=== PATIENT | female | born 1970 | race Caucasian/White ===

== ENCOUNTER 2024-07-19 12:49 | Inpatient (IN) | payer OTHER, MEDICAID ==
[~2024-07-19] VITALS: Ht 167.6 cm; Wt 95.0 kg
--- NOTE | 2024-07-19 13:29 | ECG ---
[facility] Test Date: 2024-07-19 Test Time: 12:56:25 Pat Name: JACKSON NGUYEN Department: ER Room: Gender: F Oil Mixer: CHELSEA : 1970 Requested By: AMIRA VALLEJO Order Number: [id number] Reading MD: Measurements Intervals [place] Rate: 60 P: 32 WI: 173 QRS: -16 QRSD: 82 T: 89 QT: 594 QTc: 594 Interpretive Statements Sinus rhythm Borderline left axis deviation Consider anterior infarct Prolonged QT interval Please click the below link to view image of tracing.
--- NOTE | 2024-07-19 13:50 | ED.PDOC ---
HPI Comments HPI: Poor Historian. 53 Y F YIFAN presents to the ED, with CC of chest pain. Per EMS, patient started experiencing chest pain x1 hour that radiates to her neck and head. Patient, relays that she currently just finished chemotherapy for breast cancer in her right breast and is supposed to start radiation next week. Patient was given 324mg of Aspirin and 0.4 on Nitro in route to the ED; patient relays that symptoms improved after medications. Patient denies fever, chills, body aches, or N/V/D. VITALS: T:98.3 HR:65 RR:16 O2:99 BP:148/81 SOCIAL HX: DENIES TOBACCO USAGE, ETOH CONSUMPTION, OR ILLICIT DRUG USE SHX: GALLBLADDER PMHX: BREAST CANCER, APPENDICITIS ALLERGIES: NKA REVIEW OF SYSTEMS: CONSTITUTIONAL: Denies acute: fever, diaphoresis, chills, generalized weakness. HEAD: Denies acute: headache, photophobia Eyes: Denies acute: Double vision, vision loss, eye pain, eye discharge. EARS: Denies acute: tinnitus, hearing loss, ear discharge, ear pain, THROAT: Denies acute: sore throat, swelling, difficulty swallowing , pain with swallowing, change in voice. NECK: Denies acute: neck swelling, stiff neck. HEART: Denies acute : palpitations, LUNGS: Denies acute: wheezing, cough, hemoptysis ABDOMEN: Denies acute: abdominal pain, Nausea, Vomiting, diarrhea, melena , hematemesis, hematochezia SKIN: Denies acute: rash, redness, lesions, itchiness. EXTREMITIES: Denies acute: calf pain, numbness, tingling, weakness, denies pain in extremity. Denies acute: Low back pain. Neuro: Denies acute: focal neurological deficit, motor or sensory focal neurological deficit, tremors, seizure like activity, confusion, dizziness, change in mental status, loss of bowel or bladder function, cauda equina like symptoms. : Denies acute: dysuria, hematuria, flank pain, increase in urinary frequency. PSYCH: Denies acute: hallucination, suicidal ideation, homicidal ideation. FEMALE: Denies acute: abnormal vaginal bleeding, foul odor, unusual discharge. PHYSICAL EXAM: General: no acute distress, awake and alert. Head: normocephalic, atraumatic. Neck: supple, trachea is midline, no swelling. Throat: Normal phonation. Eyes:, no erythema, no purulent discharge, no proptosis, no icterus. Heart: regular rate, regular rhythm, no significant murmur appreciated. Lungs: no apparent respiratory distress, Able to speak in full sentences. No wheezing, no rhonchi, no crackles. No stridors Clear to auscultation bilaterally. Abdomen: non tender to palpation, non distended, soft, no guarding, no rebound, + bowel sounds. Neuro: Awake, Alert, oriented to name, self, situation, follows commands GCS=15. Speech is normal. Skin: no petechia, no purpura, no cyanosis, non-pale, not jaundice. Lower extremities: --no - Pitting edema no deformity, no focal swelling, no calf TTP. Makes eye contact. moves all four extremities. Face: no apparent facial droop. Ambulating in the ED independently. Chief Complaint: Chest Pain Time Seen by MD: 13:00 Primary Care Provider: ELIZABETH Reviewed Notes: Nurses Notes, High School Coach Notes, Medications, Allergies Allergies: Coded Allergies: NO KNOWN ALLERGIES (Unverified , 05/16/13) Information Source: Patient, Emergency Med Personnel Mode of Arrival: EMS Severity: Mild Timing: Hours Duration: Since onset Prehospital treatment: Other (324 ASPRIN, 0.4 NITRO) Location: Substernal Radiation: Neck Cardiac Risk Factors: None PE Risk Factors: None History of: None Associated Signs and Symptoms: None Was a procedure done? Was a procedure done?: No X-Ray, Labs, Meds, VS Vital Signs Date Time Temp Pulse Resp B/P (MAP) Pulse Ox O2 Delivery O2 Flow Rate FiO2 07/19/24 18:53 65 07/19/24 17:52 60 16 97 Room Air* 0 21 07/19/24 15:52 60 07/19/24 15:32 65 18 98 Room Air 07/19/24 15:32 98.2 65 18 144/91 (108) 95 98.2 07/19/24 14:14 60 07/19/24 12:56 60 07/19/24 12:49 98.3 65 16 148/81 (103) 99 Lab Test 07/19/24 17:20 07/19/24 15:29 07/19/24 15:26 07/19/24 14:36 Range/Units Troponin I High Sensitivity < 3 L < 3 L < 3 L </=34 ng/L Urine Color Yellow Yellow Urine Clarity Turbid H Clear Urine pH 6.5 5.0-9.0 Urine Specific [place] 1.020 1.001-1.035 Urine Protein Trace H Negative Urine Ketones Trace Negative Urine Blood Negative Negative /uL Urine Nitrite Negative Negative Urine Bilirubin Negative Negative Urine Urobilinogen Normal Negative mg/dL Urine Leukocyte Esterase 2+ Negative /uL Urine RBC 3 0 - 4 /hpf Urine WBC 18 0 - 5 /hpf Urine Squamous Epithelial Cells Mod <5 /hpf Urine Bacteria Few H None Seen /hpf Urine Hyaline Casts Few 0 - 2 /lpf Urine Mucus Few None Seen Urine Yeast (Budding) Occasional None Seen /hpf Urine Glucose Normal Normal mg/dL White Blood Count 4.5 4.4-10.8 10^3/uL Red Blood Count 4.60 4.0-5.20 10^6/uL Hemoglobin 14.6 12.2-16.2 g/dL Hematocrit 42.7 36.0-46.0 % Mean Corpuscular Volume 92.9 80.0-100.0 fL Mean Corpuscular Hemoglobin 31.8 28.0-32.0 pg Mean Corpuscular Hemoglobin Concent 34.3 32.0-36.0 g/dL Red Cell Distribution Width 12.5 11.8-14.3 % Platelet Count 261 140-450 10^3/uL Mean Platelet Volume 6.8 L 6.9-10.8 fL Neutrophils (%) (Auto) 49.8 37.0-80.0 % Lymphocytes (%) (Auto) 41.4 10.0-50.0 % Monocytes (%) (Auto) 6.5 0.0-12.0 % Eosinophils (%) (Auto) 1.3 0.0-7.0 % Basophils (%) (Auto) 1.0 0.0-2.0 % Neutrophils # (Auto) 2.3 1.6-8.6 10 ^3/uL Lymphocytes # (Auto) 1.9 0.4-5.4 10 ^3/uL Monocytes # (Auto) 0.3 0-1.3 10 ^3/uL Eosinophils # (Auto) 0.1 0-0.8 10 ^3/uL Basophils # (Auto) 0 0-0.2 10 ^3/uL Nucleated Red Blood Cells 0.2 % D-Dimer, Quantitative 0.74 H 0.0-0.49 mg/L FEU Sodium Level 141 136-145 mmol/L Potassium Level 3.8 3.5-5.1 mmol/L Chloride Level 109 H 98-107 mmol/L Carbon Dioxide Level 24 20-31 mmol/L Anion Gap 8 5-15 Blood Urea Nitrogen 12 9-23 mg/dL Creatinine 0.80 0.550-1.02 mg/dL Glomerular Filtration Rate Calc 87 >90 mL/min BUN/Creatinine Ratio 15.0 10.0-20.0 Serum Glucose 99 74-106 mg/dL Lactic Acid Level 1.3 0.4-2.0 mmol/L Calcium Level 10.6 H 8.7-10.4 mg/dL Total Bilirubin 1.0 0.2-1.0 mg/dL Aspartate Amino Transferase (AST) 32 13-40 U/L Alanine Aminotransferase (ALT) 49 H 7-40 U/L Alkaline Phosphatase 103 46-116 U/L B-Type Natriuretic Peptide 12.71 0-100 pg/mL Total Protein 7.0 5.7-8.2 g/dL Albumin 4.6 3.2-4.8 g/dL Current Medications Medications (Trade) Dose Ordered Sig/Beverly Route Start Time Stop Time Status Last Admin Ceftriaxone Sodium 50 ml @ 100 mls/hr ONCE ONCE IV 07/19/24 17:00 07/19/24 17:29 DC 07/19/24 17:49 Time of 1ST Reevaluation: 13:30 Reevaluation 1ST: Unchanged Time of 2ND Reevaluation: 16:53 (The case was discussed with the [facility] team (HPI, physical exam, labs and diagnostic tests that were available at the time of disposition, ED course, treatment plan) on the phone. CTA angiogram still pending. Dr. Snady authorization [id number]. Assuming CT scan is normal, they will transfer the patient to their facility for further evaluation and treatment.) Time of 3RD Reevaluation: 19:17 ([facility] called back again at this time and said that they can not find a bed for the patient. They authorized us to admit the patient here in our facility.) Patient Education/Counseling: Diagnosis, Treatment Family Education/Counseling: Other Comments 53 Y F YIFAN presents to the ED, with CC of chest pain. Patient was found with the above mentioned diagnosis. the following medications were ordered: NITROGLYCERIN SUBLINGUAL the following tests were ordered: EKGX2, LABS, UA, CXR Patient ED course and VS have been stabilized. Patient has been reassessed in the ED and remained in a stable condition. Pertinent incidental findings were discussed with the patient and/or family. Patient/family voices understanding and is agreeable with plan. Patient has been observed in the ED adequate length of time to insure improvement/stability. Escalation of care considered: Consideration of escalation to observation or admission Patient was ADMITTED to the medicine team for further evaluation and treatment of their presentation. Patient was discharged. All the reports of any imaging studies that were ordered by myself were reviewed by myself. Departure 1 Departure Time of Disposition: 14:18 Impression: Primary Impression: Chest pain Additional Impression: Pulmonary nodule Disposition: ADMITTED INPATIENT Admit to: Tele Condition: Guarded Discharged With: Self Critical Care Note Critical Care Time?: No Stability Stability form required: No Heart Score Heart Score: Heart Score Response (Comments) Value History N/A 0 EKG N/A 0 Age N/A 0 Risk Factors N/A 0 Troponin N/A 0 Total 0 I personally scribed for AMIRA VALLEJO DO ([email or web address]) on 07/19/24 at 13:50. Electronically submitted by Montserrat Holguin ([email or web address]). I personally scribed for AMIRA VALLEJO DO ([email or web address]) on 07/19/24 at 15:46. Electronically submitted by Montserrat Holguin ([email or web address]). AMIRA VALLEJO DO Jul 19, 2024 13:50
--- NOTE | 2024-07-19 13:51 | DVH ---
CHEST RADIOGRAPH Indication: cp Technique: Single frontal view of the chest was obtained COMPARISON: None FINDINGS: Lines and Tubes: None Lungs: Clear Pleura: No effusion. No pneumothorax. Cardiomediastinal contours: Unremarkable Bones: Unremarkable IMPRESSION: 1. No acute disease.
[2024-07-19 14:51] LABS: Basophils # (auto) 0 10 ^3/uL (0-0.2); Eosinophils # (auto) 0.1 10 ^3/uL (0-0.8); Eosinophils % (auto) 1.3 % (0.0-7.0); Hematocrit 42.7 % (36.0-46.0); Hemoglobin 14.6 g/dL (12.2-16.2); Lymphocytes # (auto) 1.9 10 ^3/uL (0.4-5.4); Lymphocytes % (auto) 41.4 % (10.0-50.0); Mean Corpuscular Hemoglobin 31.8 pg (28.0-32.0); Mean Corpuscular Hgb Conc. 34.3 g/dL (32.0-36.0); Mean Corpuscular Volume 92.9 fL (80.0-100.0); Monocytes # (auto) 0.3 10 ^3/uL (0-1.3); Monocytes % (auto) 6.5 % (0.0-12.0); Neutrophils # (auto) 2.3 10 ^3/uL (1.6-8.6); Neutrophils % (auto) 49.8 % (37.0-80.0); Nucleated Red Blood Cells % 0.2 %; Platelet Count (auto) 261 10^3/uL (140-450); Red Cell Distribution Width 12.5 % (11.8-14.3); White Blood Cell 4.5 10^3/uL (4.4-10.8)
[2024-07-19 15:12] LABS: Albumin 4.6 g/dL (3.2-4.8); Alkaline Phosphatase 103 U/L (46-116); Anion Gap 8 (5-15); Aspartate Aminotransferase 32 U/L (13-40); Blood Urea Nitrogen 12 mg/dL (9-23); Carbon Dioxide 24 mmol/L (20-31); Glucose 99 mg/dL (74-106); Potassium 3.8 mmol/L (3.5-5.1); Sodium 141 mmol/L (136-145)
[2024-07-19 15:30] LABS: Alanine Aminotransferase 49 U/L (7-40); Calcium 10.6 mg/dL (8.7-10.4); Chloride 109 mmol/L (98-107)
[2024-07-19] MEDS: NITROGLYCERIN 0.4 MG SL TAB SL ONE (15:34)
[2024-07-19 15:51] LABS: Urine Bacteria FEW /hpf (None Seen); Urine Blood Negative /uL (Negative); Urine Budding Yeast OCCASIONAL /hpf (None Seen); Urine Clarity Turbid (Clear); Urine Color Yellow (Yellow); Urine Hyaline Cast FEW /lpf (0 - 2); Urine Mucus FEW (None Seen); Urine Protein, UAD TRACE (Negative); Urine Squamous Epithelial Cell MOD /hpf (<5); Urine Urobilinogen Normal (Negative); Urine WBC 18 /hpf (0 - 5); Urine pH 6.5 (5.0-9.0)
[2024-07-19] MEDS: IOHEXOL 350 MG/ML 100ML IJ ONE (17:04)
--- NOTE | 2024-07-19 17:46 | DVH ---
CT CT ANGIO CHEST CONTRAST INDICATION: cp EXAM DATE: 07/19/2024 05:06 PM COMPARISON: None RADIATION DOSE: CTDIvol: 20.88 mGy, DLP: 714.35 mGy*cm PROCEDURE: Helical CT angiographic images were obtained of the chest with intravenous contrast. Sagi ttal and coronal reconstructions as well as MIPS are provided. Maximum intensity projections performe d (MIPs) were performed for CTA. ADDITIONAL IMAGES / REFORMATS: None All CT scans at this medical facility are performed using dose modulation techniques as appropriate t o a performed exam including the following: Automated exposure control was utilized; adjustment of th e MA and/or KV according to patient size; and use of iterative reconstruction technique. FINDINGS: Bones: Scattered degenerative changes are noted in the visualized osseous structures. Visualized Abdomen: Cholecystectomy clips, post surgical change from gastric bypass. Chest Wall: Normal. Soft tissues: Normal. Mediastinum: Normal. Heart: Normal. Vessels: No filling defects in the visualized pulmonary arteries including the segmental and subsegme ntal pulmonary arteries. Lymph Nodes: Normal. Pleura: Normal. Airways: Normal. Lun mm right upper lobe pulmonary nodule. Other: None IMPRESSION: No pulmonary embolism in the visualized pulmonary arteries including the segmental and subsegmental p ulmonary arteries.
[2024-07-19] MEDS: cefTRIAXone 1GM/50ML D5W 50 ML IV ONE (17:49)
[2024-07-19 17:52] VITALS: PULSE 60; RESP 16; O2SAT 97
--- NOTE | 2024-07-19 18:56 | ECG ---
[facility] Test Date: 2024-07-19 Test Time: 18:53:01 Pat Name: JACKSON NGUYEN Department: ER Room: Gender: F Data Processing Manager: CHELSEA : 1970 Requested By: AMIRA VALLEJO Order Number: [id number] Reading MD: Measurements Intervals [place] Rate: 65 P: 24 AK: 161 QRS: -17 QRSD: 90 T: 59 QT: 514 QTc: 535 Interpretive Statements Sinus rhythm Borderline left axis deviation Consider anterior infarct Prolonged QT interval Please click the below link to view image of tracing.
[2024-07-19] MEDS ORDERED: ONDANSETRON HCL 4 MG/2 ML VIAL IV PRN (21:45)
[2024-07-19] MEDS ORDERED: ACETAMINOPHEN 325 MG TAB PO PRN (21:45)
[2024-07-19] MEDS ORDERED: DOCUSATE SOD 100 MG CAP PO PRN (21:45)
--- NOTE | 2024-07-19 22:43 | DVHHP2 ---
History of Present Illness Reason for Visit: Chest pain History of Present Illness The patient is a 53-year-old female with past medical history of appendicitis and breast cancer who presented to [facility] ED with complaint of chest pain. Patient reports symptoms progressively get worse with substernal chest pain, radiating to her neck and head, getting worse that prompted this visit. Patient reports she recently finished chemotherapy for right breast cancer and supposed to start radiation therapy next week. Patient was seen and evaluated in the ED, laboratory data shows WBC 4.5, platelets 261, sodium 141, potassium 3.8, BUN 12, creatinine 0.80, GFR 87, glucose 99, D-dimer 0.74, AST 32, ALT 49, troponin 3, calcium 10.6, urinalysis positive for urinary tract infection, blood pressure 144/91, heart rate 65, temperature 98.2 F, O2 saturation 97% on room air. CT Angiography revealing 4 mm right upper lobe pulmonary nodules, no pulmonary embolism in the visualized pulmonary arteries. Patient was started on IV antibiotic regimen Rocephin, please see medication orders section in the computer. On my assessment, patient denied chest pain at this moment, no headache, no dizziness, no diaphoresis, no shortness of breath, no nausea, no vomiting, no fever, no chills. Patient was admitted for further evaluation and medical management. Past Medical History Breast cancer, appendicitis Past Surgical History Gallbladder surgery Family History Reviewed, noncontributory to the management of this case. Past Social History The patient lives at home, denies smoking, alcohol or illicit drugs abuse. Review of Systems Constitutional: Yes: Weakness; No: Fever, Chills, Sweats, Malaise, Other Eyes: No: Pain, Vision change, Conjunctivae inflammation, Eyelid inflammation, Other, Redness ENT: No: Ear pain, Ear discharge, Nose pain, Nose discharge, Nose congestion, Mouth pain, Mouth swelling, Throat pain, Throat swelling, Other Respiratory: No: Cough, Dry, Shortness of breath, SOB with excertion, Wheezing, Hemoptysis, Pleuritic Pain, Sputum, Wheezing, Other Cardiovascular: Chest Pain; No: Palpitations, Orthopnea, Paroxysmal Noc. Dyspnea, Edema, Lt Headedness, Other Gastrointestinal: No: Nausea, Vomiting, Abdominal Pain, Diarrhea, Constipation, Melena, Hematochezia, Other Genitourinary: No Dysuria, No Frequency, No Incontinence, No Hematuria, No Retention, No Other Musculoskeletal: No: other, neck pain, shoulder pain, arm pain, back pain, hand pain, leg pain, foot pain Skin: No: Rash, Lesions, Jaundice, Bruising, Other Neurological: No: Weakness, Numbness, Incoordination, Change in speech, Confusion, Seizures, Other Allergies: Coded Allergies: NO KNOWN ALLERGIES (Unverified , 05/16/13) Medications Current Medications Medications Dose Ordered Sig/Beverly Route Start Time Stop Time Status Last Admin Dose Admin Ceftriaxone Sodium 50 ml @ 100 mls/hr DAILY@09 IV 07/20/24 09:00 Aspirin 81 mg DAILY PO 07/20/24 10:00 Acetaminophen/ Hydrocodone Bitart 1 tab Q4HP PRN PO 07/19/24 21:45 Ondansetron HCl 4 mg Q4HP PRN IV 07/19/24 21:45 Docusate Sodium 100 mg BIDPRN PRN PO 07/19/24 21:45 Acetaminophen 650 mg Q6HP PRN PO 07/19/24 21:45 Morphine Sulfate 2 mg Q4HPRN PRN IV 07/19/24 21:45 Exam Vital Signs Vital Signs Date Time Temp Pulse Resp B/P (MAP) Pulse Ox O2 Delivery O2 Flow Rate FiO2 07/19/24 21:36 97.5 82 24 147/84 (105) 99 97.5 07/19/24 17:52 Room Air* 0 21 General Appearance: Alert, Oriented X3, Cooperative, No acute distress HEENT: Atraumatic, PERRLA, EOMI, Mucous membr. moist/pink Respiratory: Clear to auscultation, Normal air movement Cardiovascular: Regular rate, Normal S1, Normal S2, No murmurs Abdominal: Normal bowel sounds, Soft, No tenderness, No hepatospenomegaly, No masses Extremities: No clubbing, No cyanosis, No edema, Normal pulses, No tenderness/swelling Skin: No rashes, No breakdown, No significant lesion Neuro: Normal speech, Normal tone, Sensation intact, Cranial nerves 3-12 NL, Reflexes 2+, Other (Generalized weakness) Psych/Mental Status: Mental status NL, Mood NL Labs/Xrays Labs Test 07/19/24 17:20 07/19/24 15:29 07/19/24 14:36 Range/Units Troponin I High Sensitivity < 3 L </=34 ng/L Urine Color Yellow Yellow Urine Clarity Turbid H Clear Urine pH 6.5 5.0-9.0 Urine Specific [place] 1.020 1.001-1.035 Urine Protein Trace H Negative Urine Ketones Trace Negative Urine Blood Negative Negative /uL Urine Nitrite Negative Negative Urine Bilirubin Negative Negative Urine Urobilinogen Normal Negative mg/dL Urine Leukocyte Esterase 2+ Negative /uL Urine RBC 3 0 - 4 /hpf Urine WBC 18 0 - 5 /hpf Urine Squamous Epithelial Cells Mod <5 /hpf Urine Bacteria Few H None Seen /hpf Urine Hyaline Casts Few 0 - 2 /lpf Urine Mucus Few None Seen Urine Yeast (Budding) Occasional None Seen /hpf Urine Glucose Normal Normal mg/dL White Blood Count 4.5 4.4-10.8 10^3/uL Red Blood Count 4.60 4.0-5.20 10^6/uL Hemoglobin 14.6 12.2-16.2 g/dL Hematocrit 42.7 36.0-46.0 % Mean Corpuscular Volume 92.9 80.0-100.0 fL Mean Corpuscular Hemoglobin 31.8 28.0-32.0 pg Mean Corpuscular Hemoglobin Concent 34.3 32.0-36.0 g/dL Red Cell Distribution Width 12.5 11.8-14.3 % Platelet Count 261 140-450 10^3/uL Mean Platelet Volume 6.8 L 6.9-10.8 fL Neutrophils (%) (Auto) 49.8 37.0-80.0 % Lymphocytes (%) (Auto) 41.4 10.0-50.0 % Monocytes (%) (Auto) 6.5 0.0-12.0 % Eosinophils (%) (Auto) 1.3 0.0-7.0 % Basophils (%) (Auto) 1.0 0.0-2.0 % Neutrophils # (Auto) 2.3 1.6-8.6 10 ^3/uL Lymphocytes # (Auto) 1.9 0.4-5.4 10 ^3/uL Monocytes # (Auto) 0.3 0-1.3 10 ^3/uL Eosinophils # (Auto) 0.1 0-0.8 10 ^3/uL Basophils # (Auto) 0 0-0.2 10 ^3/uL Nucleated Red Blood Cells 0.2 % D-Dimer, Quantitative 0.74 H 0.0-0.49 mg/L FEU Sodium Level 141 136-145 mmol/L Potassium Level 3.8 3.5-5.1 mmol/L Chloride Level 109 H 98-107 mmol/L Carbon Dioxide Level 24 20-31 mmol/L Anion Gap 8 5-15 Blood Urea Nitrogen 12 9-23 mg/dL Creatinine 0.80 0.550-1.02 mg/dL Glomerular Filtration Rate Calc 87 >90 mL/min BUN/Creatinine Ratio 15.0 10.0-20.0 Serum Glucose 99 74-106 mg/dL Lactic Acid Level 1.3 0.4-2.0 mmol/L Calcium Level 10.6 H 8.7-10.4 mg/dL Total Bilirubin 1.0 0.2-1.0 mg/dL Aspartate Amino Transferase (AST) 32 13-40 U/L Alanine Aminotransferase (ALT) 49 H 7-40 U/L Alkaline Phosphatase 103 46-116 U/L B-Type Natriuretic Peptide 12.71 0-100 pg/mL Total Protein 7.0 5.7-8.2 g/dL Albumin 4.6 3.2-4.8 g/dL PATIENT: JACKSON NGUYEN ACCT: [id number] UNIT: [id number] : 1970 LOC: ER ROOM / BED: / AGE / SEX: 53 / F ADM STATUS: REG ER SERVICE [id number] ORDERING PHYSICIAN: AMIRA VALLEJO DO PROCEDURE(s): CTACH - CT ANGIO CHEST CONTRAST REASON: ORDER NUMBER(s): [id number], ACCESSION NUMBER(s): [id number] CT CT ANGIO CHEST CONTRAST INDICATION: cp EXAM DATE: 07/19/2024 05:06 PM COMPARISON: None RADIATION DOSE: CTDIvol: 20.88 mGy, DLP: 714.35 mGy*cm PROCEDURE: Helical CT angiographic images were obtained of the chest with intravenous contrast. Sagittal and coronal reconstructions as well as MIPS are provided. Maximum intensity projections performed (MIPs) were performed for CTA. ADDITIONAL IMAGES/REFORMATS: None All CT scans at this medical facility are performed using dose modulation techniques as appropriate to a performed exam including the following: Automated exposure control was utilized; adjustment of the MA and/or KV according to patient size; and use of iterative reconstruction technique. FINDINGS: Bones: Scattered degenerative changes are noted in the visualized osseous structures. Visualized Abdomen: Cholecystectomy clips, post surgical change from gastric bypass. Chest Wall: Normal. Soft tissues: Normal. Mediastinum: Normal. Heart: Normal. Vessels: No filling defects in the visualized pulmonary arteries including the segmental and subsegmental pulmonary arteries. Lymph Nodes: Normal. Pleura: Normal. Airways: Normal. Lun mm right upper lobe pulmonary nodule. Other: None IMPRESSION: No pulmonary embolism in the visualized pulmonary arteries including the segmental and subsegmental pulmonary arteries. ORDERING PHYSICIAN: AMIRA VALLEJO DO PROCEDURE(s): CXRP - CHEST PORTABLE REASON: cp ORDER NUMBER(s): [id number], ACCESSION NUMBER(s): [id number] CHEST RADIOGRAPH Indication: cp Technique: Single frontal view of the chest was obtained COMPARISON: None FINDINGS: Lines and Tubes: None Lungs: Clear Pleura: No effusion. No pneumothorax. Cardiomediastinal contours: Unremarkable Bones: Unremarkable IMPRESSION: 1. No acute disease. Assessment/Plan Assessment/Plan Chest pain Pulmonary nodule Elevated D-dimer Urinary tract infection Plan 1. Admit to telemetry unit 2. Breathing treatment 3. Pain control management 4. IV antibiotic management 5. Management of fluids and electrolytes 6. Consultation for hospitalist 7. Diagnostic test CT Angiography 8. DVT prophylaxis-on aspirin 9. Repeat labs CBC, CMP in a.m. 10. Home medication reviewed and reconciled 11. Continue with current medical management 12. Treatment plan discussed with patient and RN. Patient verbalized understanding. Plan discussed with: Patient, Other (RN) My Orders Orders - SUDHEER MULLER DNP Procedure Category Date Status Time Ceftriaxone 1gm/50ml PHA 07/20/24 In Process D5w (Rocephin) 09:00 Urine Bacterial DORIE 07/19/24 In Process Culture 21:37 Aspirin Tablet PHA 07/20/24 In Process 10:00 Allergies TETO 07/19/24 In Process 21:37 Code Status CODE 07/19/24 Transmitted 21:37 Oxygen Per Hour RT 07/19/24 Transmitted 21:37 Hydrocodone-Acet PHA 07/19/24 In Process 5/325mg Tab ([place] 21:45 Ondansetron Hcl PHA 07/19/24 In Process (Zofran) 21:45 Docusate Sodium PHA 07/19/24 In Process Capsule (Colace 21:45 Complete Blood Count LAB 07/20/24 Verified 04:00 Comprehensive LAB 07/20/24 Verified Metabolic Panel 04:00 Cardiac DIET 07/20/24 Transmitted Diet-2gna,Lofat,Lochol Breakfast Condition: Serious TETO 07/19/24 In Process 21:37 Acetaminophen Tablet PHA 07/19/24 In Process (Tylenol Tablet) 21:45 Bedrest With Bathroom TETO 07/19/24 In Process Privileg 21:37 Morphine Sulfate [facility] 07/19/24 In Process Injection 21:45 Sequential TETO 07/19/24 In Process Compression Device Admit ADMIT 07/19/24 Verified 22:41 Nitroglycerin [facility] 07/19/24 Verified Sublingual (Ntrostat 22:45 Morphine Sulfate [facility] 07/19/24 Verified Injection 22:45 Notify Of Changes [facility] 07/19/24 Verified From Base 22:41 Postal Inspector For [facility] 07/19/24 Verified 24 Hours 22:41 Emergency Dysrhythmia [facility] 07/19/24 Verified Protocol 22:41 Rhythm Strips Once [facility] 07/19/24 Verified Every Shift 22:41 Oxygen By Nasal RT 07/19/24 Verified Cannula 22:41 Problem List: (1) Chest pain (2) Pulmonary nodule (3) Elevated d-dimer (4) Urinary tract infection Date of Service: Jul 19, 2024 Billing Provider: SUDHEER MULLER DNP Common Visit Codes: [id number] INP/OBS CARE (HIGH) SUDHEER MULLER DNP Jul 19, 2024 22:43
[2024-07-19] MEDS ORDERED: MORPHINE SULFATE INJ 2 MG/ml SYRG IV PRN (22:45)
[2024-07-19] MEDS ORDERED: NITROGLYCERIN 0.4 MG SL TAB SL PRN (22:45)
[2024-07-19] MEDS: ASPirin 81 mg TAB PO ONE (23:12)
[2024-07-20] MEDS: MORPHINE SULFATE INJ 2 MG/ml SYRG IV PRN (00:01)
[2024-07-20 01:17] VITALS: PULSE 69; RESP 16; O2SAT 98
[2024-07-20 04:25] LABS: Basophils # (auto) 0.1 10 ^3/uL (0-0.2); Basophils % (auto) 1.3 % (0.0-2.0); Eosinophils # (auto) 0.1 10 ^3/uL (0-0.8); Eosinophils % (auto) 1.5 % (0.0-7.0); Lymphocytes # (auto) 1.9 10 ^3/uL (0.4-5.4); Lymphocytes % (auto) 40.3 % (10.0-50.0); Mean Corpuscular Hgb Conc. 34.1 g/dL (32.0-36.0); Mean Corpuscular Volume 93.7 fL (80.0-100.0); Monocytes # (auto) 0.5 10 ^3/uL (0-1.3); Monocytes % (auto) 10.6 % (0.0-12.0); Neutrophils # (auto) 2.1 10 ^3/uL (1.6-8.6); Neutrophils % (auto) 46.3 % (37.0-80.0); Nucleated Red Blood Cells % 0.1 %; Platelet Count (auto) 232 10^3/uL (140-450); Red Blood Cells 4.37 10^6/uL (4.0-5.20); Red Cell Distribution Width 12.6 % (11.8-14.3); White Blood Cell 4.6 10^3/uL (4.4-10.8)
[2024-07-20 04:45] LABS: Albumin 4.3 g/dL (3.2-4.8); Alkaline Phosphatase 96 U/L (46-116); Anion Gap 9 (5-15); Aspartate Aminotransferase 30 U/L (13-40); BUN/Creatinine Ratio 18.2 (10.0-20.0); Blood Urea Nitrogen 14 mg/dL (9-23); Calcium 10.3 mg/dL (8.7-10.4); Carbon Dioxide 23 mmol/L (20-31); Potassium 3.7 mmol/L (3.5-5.1); Sodium 141 mmol/L (136-145)
[2024-07-20 04:46] LABS: Bilirubin, Total 0.7 mg/dL (0.2-1.0); Total Protein 6.7 g/dL (5.7-8.2)
[2024-07-20 04:49] LABS: Alanine Aminotransferase 41 U/L (7-40); Chloride 109 mmol/L (98-107); Glucose 111 mg/dL (74-106)
[2024-07-20 08:00] VITALS: BP 128/63; PULSE 78; RESP 16; TEMP 98.4; O2SAT 97
--- NOTE | 2024-07-20 09:02 | DVHDSRES ---
Discharge Summary Date of Admission Resident Creating Document: DJ ROGERS RESIDENT Jul 19, 2024 at 22:41 Date of Discharge: Jul 20, 2024 Admitting Diagnosis Chest pain rule out ACS Labs/Diagnostic Data: Laboratory Results Test 07/20/24 03:27 07/19/24 17:20 07/19/24 15:29 07/19/24 14:36 White Blood Count 4.6 10^3/uL (4.4-10.8) Red Blood Count 4.37 10^6/uL (4.0-5.20) Hemoglobin 14.0 g/dL (12.2-16.2) Hematocrit 41.0 % (36.0-46.0) Mean Corpuscular Volume 93.7 fL (80.0-100.0) Mean Corpuscular Hemoglobin 32.0 pg (28.0-32.0) Mean Corpuscular Hemoglobin Concent 34.1 g/dL (32.0-36.0) Red Cell Distribution Width 12.6 % (11.8-14.3) Platelet Count 232 10^3/uL (140-450) Mean Platelet Volume 7.1 fL (6.9-10.8) Neutrophils (%) (Auto) 46.3 % (37.0-80.0) Lymphocytes (%) (Auto) 40.3 % (10.0-50.0) Monocytes (%) (Auto) 10.6 % (0.0-12.0) Eosinophils (%) (Auto) 1.5 % (0.0-7.0) Basophils (%) (Auto) 1.3 % (0.0-2.0) Neutrophils # (Auto) 2.1 10 ^3/uL (1.6-8.6) Lymphocytes # (Auto) 1.9 10 ^3/uL (0.4-5.4) Monocytes # (Auto) 0.5 10 ^3/uL (0-1.3) Eosinophils # (Auto) 0.1 10 ^3/uL (0-0.8) Basophils # (Auto) 0.1 10 ^3/uL (0-0.2) Nucleated Red Blood Cells 0.1 % Sodium Level 141 mmol/L (136-145) Potassium Level 3.7 mmol/L (3.5-5.1) Chloride Level 109 mmol/L (98-107) Carbon Dioxide Level 23 mmol/L (20-31) Anion Gap 9 (5-15) Blood Urea Nitrogen 14 mg/dL (9-23) Creatinine 0.77 mg/dL (0.550-1.02) Glomerular Filtration Rate Calc 91 mL/min (>90) BUN/Creatinine Ratio 18.2 (10.0-20.0) Serum Glucose 111 mg/dL (74-106) Calcium Level 10.3 mg/dL (8.7-10.4) Total Bilirubin 0.7 mg/dL (0.2-1.0) Aspartate Amino Transferase (AST) 30 U/L (13-40) Alanine Aminotransferase (ALT) 41 U/L (7-40) Alkaline Phosphatase 96 U/L (46-116) Total Protein 6.7 g/dL (5.7-8.2) Albumin 4.3 g/dL (3.2-4.8) Troponin I High Sensitivity < 3 ng/L (</=34) Urine Color Yellow (Yellow) Urine Clarity Turbid (Clear) Urine pH 6.5 (5.0-9.0) Urine Specific [place] 1.020 (1.001-1.035) Urine Protein Trace (Negative) Urine Ketones Trace (Negative) Urine Blood Negative /uL (Negative) Urine Nitrite Negative (Negative) Urine Bilirubin Negative (Negative) Urine Urobilinogen Normal mg/dL (Negative) Urine Leukocyte Esterase 2+ /uL (Negative) Urine RBC 3 /hpf (0 - 4) Urine WBC 18 /hpf (0 - 5) Urine Squamous Epithelial Cells Mod /hpf (<5) Urine Bacteria Few /hpf (None Seen) Urine Hyaline Casts Few /lpf (0 - 2) Urine Mucus Few (None Seen) Urine Yeast (Budding) Occasional /hpf (None Urine Glucose Normal mg/dL (Normal) D-Dimer, Quantitative 0.74 mg/L FEU (0.0-0.49) Lactic Acid Level 1.3 mmol/L (0.4-2.0) B-Type Natriuretic Peptide 12.71 pg/mL (0-100) Other Laboratory Tests 07/20/24 03:27 Brief Hx & Hospital Course: Hospital course 53-year-old female patient with patient's history of appendicitis, breast cancer who patient's anemia malignancy even willing with a chief complaint of sudden onset chest pain 1 day ago. She reports the symptoms progressively getting worse with substernal chest pain radiating to back and then through the neck and head getting worse the to the BC, she reports having similar chest pain in the past medical this severe, she reports she had this chest discomfort when she do physical activity. Patient reports she recently finished chemotherapy and she is currently in the middle of radiation therapy treatment. EKG in the as mentioned troponin levels were unremarkable, urinalysis was positive for urinary tract infection other blood pressure was mildly elevated 144/91. D-dimer was slightly elevated 0.0 with a 4, CT angiography was performed revealing 4 mm right upper lobe pulmonary renal loose in the pulmonary embolism. Patient was started on IV antibiotics. Patient was evaluated then she reports improvement in her symptoms, she was walking and eating during evaluation without any distress. Patient's meds intensification/relieving of the pain when leaning forward/laying flat. She denies shortness of breath fever nausea vomiting or diarrhea. Disposition: Patient is hemodinamically stable for transfer to [facility] Case discussed with Dr. Gonsales Goals of care discussed with the patient for 24 minutes code status: Full code Operations or Procedures [place] [id number] Ph: [phone] DIAGNOSTIC IMAGING Diagnostic Imaging Report : [id number] Signed PATIENT: JACKSON NGUYEN ACCT: [id number] UNIT: [id number] : 1970 LOC: ER ROOM / BED: / AGE / SEX: 53 / F ADM STATUS: REG ER SERVICE [id number] ORDERING PHYSICIAN: AMIRA VALLEJO DO PROCEDURE(s): CXRP - CHEST PORTABLE REASON: cp ORDER NUMBER(s): [id number], ACCESSION NUMBER(s): [id number] CHEST RADIOGRAPH Indication: cp Technique: Single frontal view of the chest was obtained COMPARISON: None FINDINGS: Lines and Tubes: None Lungs: Clear Pleura: No effusion. No pneumothorax. Cardiomediastinal contours: Unremarkable Bones: Unremarkable IMPRESSION: 1. No acute disease. ATED BY: TIMOTHY VU MD DICTATED DATE/TIME: 07/19/24 1348 SIGNED BY: TIMOTHY VU MD SIGNED DATE/TIME: 07/19/24 1348 CC: [place] [address] Ph: [phone] DIAGNOSTIC IMAGING Diagnostic Imaging Report : [id number] Signed PATIENT: JACKSON NGUYEN ACCT: [id number] UNIT: [id number] : 1970 LOC: ER ROOM / BED: / AGE / SEX: 53 / F ADM STATUS: REG ER SERVICE [id number] ORDERING PHYSICIAN: AMIRA VALLEJO DO PROCEDURE(s): CTACH - CT ANGIO CHEST CONTRAST REASON: cp ORDER NUMBER(s): [id number], ACCESSION NUMBER(s): [id number] CT CT ANGIO CHEST CONTRAST INDICATION: cp EXAM DATE: 07/19/2024 05:06 PM COMPARISON: None RADIATION DOSE: CTDIvol: 20.88 mGy, DLP: 714.35 mGy*cm PROCEDURE: Helical CT angiographic images were obtained of the chest with intravenous contrast. Sagittal and coronal reconstructions as well as MIPS are provided. Maximum intensity projections performed (MIPs) were performed for CTA. ADDITIONAL IMAGES / REFORMATS: None All CT scans at this medical facility are performed using dose modulation techniques as appropriate to a performed exam including the following: Automated exposure control was utilized; adjustment of the MA and/or KV according to patient size; and use of iterative reconstruction technique. FINDINGS: Bones: Scattered degenerative changes are noted in the visualized osseous structures. Visualized Abdomen: Cholecystectomy clips, post surgical change from gastric bypass. Chest Wall: Normal. Soft tissues: Normal. Mediastinum: Normal. Heart: Normal. Vessels: No filling defects in the visualized pulmonary arteries including the segmental and subsegmental pulmonary arteries. Lymph Nodes: Normal. Pleura: Normal. Airways: Normal. Lun mm right upper lobe pulmonary nodule. Other: None IMPRESSION: No pulmonary embolism in the visualized pulmonary arteries including the segmental and subsegmental pulmonary arteries. ATED BY: ILIA BOWDEN MD DICTATED DATE/TIME: 07/19/241742 SIGNED BY: ILIA BOWDEN MD SIGNED DATE/TIME: 07/19/241742 CC: Condition at Discharge: Fair Final Diagnosis/Problems List Pulmonary embolus ruled out Chest pain likely stable angina Chest pain rule out ACS Type 1 obesity UTI Pulmonary nodules Discharge Disposition: [facility] Discharge Will this Physician continue t: No Discharge Statement: "Patient was advised to return to the ER or call 911 if any headaches, dizziness, shortness of breath, chest pain, abdominal pain, bleeding, fevers, or worsening of medical condition. Patient was counseled about treatment plan, medications, possible side effects, patientverbalized understanding. All questions were answered to the best of my ability. This discharge took greater then 30 minutes in planning, reviewing documentation, counseling the patient, and discussing with other team members." ASSESSMENT ASSESSMENT Assessment Date of Service: Jul 20, 2024 Billing Provider: ROSARIO CHAU MD Common Visit Codes: 34811-JWF/OBS DISCH DAY >30min JD ROGERS RESIDENT Jul 20, 2024 09:02 ROSARIO CHAU MD Jul 21, 2024 08:54
[2024-07-20] MEDS: cefTRIAXone 1GM/50ML D5W 50 ML IV SCH (11:36)
[2024-07-20] MEDS: ASPirin 81 mg TAB PO SCH (11:36)
[2024-07-20] MEDS: HYDROcodone-ACET 5/325MG TAB PO PRN (11:56)
[2024-07-20 12:00] VITALS: BP 124/59; PULSE 63; RESP 16; TEMP 98.6; O2SAT 95
[2024-07-20 18:00] VITALS: BP 139/91; PULSE 69; RESP 16; TEMP 97.8; O2SAT 99
[2024-07-20 23:43] VITALS: BP 121/75; PULSE 79; RESP 16; TEMP 97.6; O2SAT 96
== END 2024-07-20 23:55 | disposition short-term general hospital (02) | DRG 311 ==
LOC: EDBD 12:49 → ER 12:49 → TELE 22:41
PROVIDERS: ADMIT Internal Medicine Geriatric Medicine; ATTEND Internal Medicine Geriatric Medicine
DX: I20.89 Other forms of angina pectoris (principal); N39.0 Urinary tract infection, site not specified; R91.1 Solitary pulmonary nodule; R79.89 Other specified abnormal findings of blood chemistry; C50.911 Malignant neoplasm of unspecified site of right female breast; E66.9 Obesity, unspecified; Z68.38 Body mass index [BMI] 38.0-38.9, adult
CPT/HCPCS: 36415; 71045; 71275; 80053; 81001; 83605; 83880; 84484; 85025; 85379; 87086; 93005; G0378